=== PATIENT | female | born 1995 | race Two or more races ===

== ENCOUNTER 2016-08-24 10:33 | Emergency (ER) | payer OTHER ==
[~2016-08-24] VITALS: Ht 154.9 cm; Wt 98.0 kg
[2016-08-24 10:34] VITALS: BP 148/70; PULSE 81; RESP 14; TEMP 98; O2SAT 98
[2016-08-24] MEDS ORDERED: PERM5CRE11 TOPICAL (11:16)
--- NOTE | 2016-08-24 11:17 | PD ---
HPI Chief Complaint: Skin Problem Time Seen by Provider: 11:15 Travel History International Travel<30 days: No Contact w/Intl Traveler<30days: No Traveled to known affect area: No History of Present Illness HPI 20-year-old female presents to the emergency Department with complaint of possible scabies rash since approximately June. She just moved down here from the [place] after living with her boyfriends brother who had an infestation in his house. Reports itching. Reports itching to bilateral wrists, breasts, back, and abdomen. Has tried topical calamine lotion with no relief of symptoms. Washing all of his linens and clothes in hot water with no relief of symptoms. Denies new lotions, soaps, detergents, foods, medications. Denies fever, chills, nausea, vomiting. Boyfriend has similar symptoms. No known relieving or aggravating factors. Denies significant past medical history. No known allergies. No other modifying factors or associated signs and symptoms. PFSH Past Medical History ?: Not LMP: 08/19/2016 Social History Tobacco Use: No Allergies-Medications (Allergen,Severity, Reaction): Coded Allergies: No Known Allergies (Unverified , 08/24/16) Reported Meds & Prescriptions Reported Meds & Active Scripts Active Elimite Topical (Permethrin) 5% Cream 1 Applic TOPICAL ONCE Review of Systems Except as stated in HPI: all other systems reviewed are Neg Physical Exam Narrative GENERAL: Well-nourished, well-developed female patient, in no acute distress SKIN: Warm and dry. Generalized erythremic pimple-like rash noted to bilateral wrists. No rashes noted to bilateral breasts, abdomen, back. No areas with cellulitic process noted. HEAD: Atraumatic. Normocephalic. EYES: Pupils equal and round. No scleral icterus. No injection or drainage. ENT: Mucosa pink and moist. Airway patent. NECK: Trachea midline. CARDIOVASCULAR: Regular rate. RESPIRATORY: No accessory muscle use. GASTROINTESTINAL: Rounded. MUSCULOSKELETAL: No obvious deformities. No clubbing. No cyanosis. No edema. NEUROLOGICAL: Awake and alert. Oriented 3. No obvious cranial nerve deficits. Motor grossly within normal limits. Normal speech. PSYCHIATRIC: Appropriate mood and affect; insight and judgment normal. Data Data Last Documented VS Vital Signs Date Time Temp Pulse Resp B/P Pulse Ox O2 Delivery O2 Flow Rate FiO2 3/4/17 10:34 98.0 81 14 148/70 98 MDM Medical Decision Making Medical Screen Exam Complete: Yes Emergency Medical Condition: Yes Medical Record Reviewed: Yes Differential Diagnosis Scabies exposure, scabies rash, nonspecific skin eruption, dermatitis Narrative Course 20-year-old female with possible scabies rash and exposure to scabies. Patient is afebrile and nontoxic-appearing. She denies fever, chills, nausea, vomiting. Elimite cream prescribed for home. Patient is medically cleared and stable for discharge. Discussed reasons to return to the emergency department. Instructed patient to follow up with primary care provider. Patient agrees with treatment plan. The patients vital signs are stable and the patient is stable for outpatient follow-up and treatment. Patient discharged home, stable and in no acute distress. 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 in hot water and dry in hot dryer Bag and all unwashable linens, [place] stuffed animals, etc. in a tightly sealed garbage bag for up to 2 weeks Follow-up with flavoring machine operator Follow-up with primary care provider Return to the emergency department immediately with worsening of symptoms Med/Other Pt SpecificInfo: Prescription(s) given Scripts Permethrin Topical (Elimite Topical)5% Cream1 Applic TOPICAL ONCE #1 TUBE Ref 1 Prov:Mariia Duron 08/24/16 Disposition: 01 DISCHARGE HOME Condition: Stable Mariia Duron Aug 24, 2016 11:17 Mariia Duron Aug 24, 2016 11:17
== END 2016-08-24 11:36 | disposition home or self-care (01) ==
LOC: NEPB 10:33
DX: R21 Rash and other nonspecific skin eruption (principal); Z20.7 Contact with and (suspected) exposure to pediculosis, acariasis and other infestations
CPT/HCPCS: 99282

== ENCOUNTER 2016-10-20 18:44 | Emergency (ER) | payer OTHER ==
[~2016-10-20] VITALS: Ht 162.6 cm; Wt 96.4 kg
[~2016-10-20 18:44] MED LIST: PERM5CRE11 TOPICAL
[2016-10-20 18:46] VITALS: BP 141/67; PULSE 61; RESP 15; TEMP 98.8; O2SAT 100
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
[2016-10-20] MEDS ORDERED: ROBA500T PO (19:03)
[2016-10-20] MEDS ORDERED: DICL75TA PO (19:03)
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
== END 2016-10-20 20:14 | disposition home or self-care (01) ==
LOC: PHEFT 18:44
DX: R52 Pain, unspecified (principal); M25.511 Pain in right shoulder; V49.9XXA Car occupant (driver) (passenger) injured in unspecified traffic accident, initial encounter; Y93.9 Activity, unspecified; Y92.9 Unspecified place or not applicable; Y99.9 Unspecified external cause status
CPT/HCPCS: 72125; 73030